=== PATIENT | female | born 1990 | race Caucasian/White ===

== ENCOUNTER 2017-01-30 05:39 | Day surgery (SDC) | payer BC ==
[~2017-01-30] VITALS: Ht 177.8 cm; Wt 93.0 kg
[~2017-01-30 05:39] MED LIST: ESOMEPRAZOLE MA40 MG PO; FERROUS SULFAT325 MG PO; IBUPROFEN200 M1 PO; LEVAQUIN750 MG PO; NORETHIN-ESTRA1 EAC1 PO; RANITIDINE HCL300 MG PO; TRAMADOL HCL50 MG PO; TYLENOL REGULA325 MG PO; XARELTO15 MG PO; XARELTO20 MG PO; ZYRTEC10 M3 PO
[2017-01-30 06:34] VITALS: BP 135/81
[2017-01-30] MEDS ORDERED: HYDROCODON-ACE1 EAC7 PO (08:39)
[2017-01-30] MEDS ORDERED: IBUPROFEN800 MG PO (08:39)
[2017-01-30 10:06] VITALS: BP 150/98
[2017-01-30 11:03] VITALS: BP 135/77
== END 2017-01-30 11:30 | disposition home or self-care (01) ==
LOC: SDC 05:39
DX: N80.3 Endometriosis of pelvic peritoneum (principal); N80.1 Endometriosis of ovary; N80.8 Other endometriosis; N80.5 Endometriosis of intestine; N83.201 Unspecified ovarian cyst, right side; N83.202 Unspecified ovarian cyst, left side; N73.6 Female pelvic peritoneal adhesions (postinfective); Z88.5 Allergy status to narcotic agent; Z82.49 Family history of ischemic heart disease and other diseases of the circulatory system; Z83.3 Family history of diabetes mellitus; Z86.711 Personal history of pulmonary embolism
CPT/HCPCS: 88305; J0131; J0690; J1100; J1170; J1200; J1885; J2250; J2405; J2710; J2765; J3010; J7120